=== PATIENT | male | born 1990 | race Caucasian/White ===

== ENCOUNTER 2016-04-21 22:21 | Emergency (ER) | payer BC, OTHER ==
[~2016-04-21] VITALS: Ht 170.2 cm; Wt 65.9 kg
[~2016-04-21 22:21] MED LIST: IBUP400T20 PO
[2016-04-21 22:25] VITALS: BP 135/86; PULSE 66; RESP 16; TEMP 98.1; O2SAT 99
[2016-04-21] MEDS ORDERED: DICL75TA PO (22:41)
[2016-04-21] MEDS ORDERED: HYDR-3533 PO (22:41)
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
[2016-04-21] MEDS ORDERED: IBUPROFEN 800 MG TAB PO ONE (22:45)
[2016-04-21] MEDS ORDERED: ACETAMINOPHEN/HYDROcodone 325 MG/5 MG TAB PO ONE (22:45)
[2016-04-21] MEDS ORDERED: TETANUS/DIPHTHERIA TOXOID ADULT 0.5 ML VIAL IM ONE (22:45)
== END 2016-04-21 23:20 | disposition home or self-care (01) ==
LOC: NEPB 22:21
DX: S70.211A Abrasion, right hip, initial encounter (principal); S50.811A Abrasion of right forearm, initial encounter; Z23 Encounter for immunization; Z72.0 Tobacco use; V28.0XXA Motorcycle driver injured in noncollision transport accident in nontraffic accident, initial encounter; Y99.8 Other external cause status
CPT/HCPCS: 90471; 90714

== ENCOUNTER 2017-08-15 21:37 | Emergency (ER) | payer BC, OTHER ==
[~2017-08-15 21:37] MED LIST changes: +DICL75TA PO; +HYDR-3533 PO
[2017-08-15] MEDS ORDERED: SODIUM CHLOR 0.9% 1000 ML INJ 1,000 ML IV ONE (22:15)
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
== END 2017-08-15 22:34 | disposition left against medical advice (07) ==
LOC: PHED 21:37
DX: T51.0X1A Toxic effect of ethanol, accidental (unintentional), initial encounter (principal); F10.129 Alcohol abuse with intoxication, unspecified; Z72.0 Tobacco use
CPT/HCPCS: 99282